=== PATIENT | female | born 1955 | race Hispanic/Latino ===

== ENCOUNTER 2020-02-12 12:12 | Outpatient (CLI) | payer OTHER ==
--- NOTE | 2020-02-12 13:57 | XRay Report ---
BILATERAL HIPS WITH PELVIS, 3 VIEWS INDICATION: BILATERAL HIP PAIN. COMPARISON: None. IMPRESSION: Borderline bone mineralization. There is been previous surgery along the greater trochan ter of the proximal right femur with adjacent mild heterotopic calcifications. Correlate with history . No evidence for acute fracture or bony lesion. Minimal to mild osteoarthritic changes. No evidence for osteonecrosis. Signer Name: Lenard Ordoñez Jr, MD Signed: 02/12/2020 1:53 PM Workstation Name: [id number]
== END 2020-02-12 12:13 | disposition home or self-care (01) ==
LOC: XRAY 12:12
PROVIDERS: ATTEND Internal Medicine
DX: M25.851 Other specified joint disorders, right hip (principal); M25.552 Pain in left hip
CPT/HCPCS: 73521